=== PATIENT | female | born 1950 | race Caucasian/White ===

== ENCOUNTER 2018-03-19 06:00 | Day surgery (SDC) | payer OTHER, BC ==
[2018-03-19] MEDS ORDERED: MIDAZOLAM 1 MG/ML 2 ML INJ ×2 (07:59)
[2018-03-19] MEDS ORDERED: FENTAnyl 50 MCG/ML VIAL (07:59)
== END 2018-03-19 14:12 | disposition home or self-care (01) ==
LOC: GIL 06:00
DX: Z12.11 Encounter for screening for malignant neoplasm of colon (principal); D12.4 Benign neoplasm of descending colon; K57.90 Diverticulosis of intestine, part unspecified, without perforation or abscess without bleeding; K64.8 Other hemorrhoids; K64.4 Residual hemorrhoidal skin tags
CPT/HCPCS: 45380; 88305